=== PATIENT | female | born 1960 | race Caucasian/White ===

== ENCOUNTER 2016-04-22 02:48 | Emergency (ER) | payer OTHER ==
[~2016-04-22] VITALS: Ht 167.6 cm; Wt 92.3 kg
[~2016-04-22 02:48] MED LIST: BEN25 PO; CLIN-73 PO; IBUP-1542 PO
[2016-04-22 02:52] VITALS: Ht 167.6 cm; Wt 92.3 kg
[2016-04-22] MEDS ORDERED: IBUPROFEN 600 MG TAB PO ONE (03:30)
[2016-04-22] MEDS ORDERED: HYDROCODONE/APAP (5/325) TAB PO ONE (03:30)
--- NOTE | 2016-04-22 04:15 | RADRPT ---
PROCEDURE: XR right shoulder. CLINICAL INDICATION: pain TECHNIQUE: 3 views of the right shoulder were performed. COMPARISON: None. FINDINGS: No fracture or dislocation is seen. No lytic or blastic bony lesion is seen. No significant degene rative change. No definite soft tissue abnormality. IMPRESSION: No definite acute fracture or dislocation. RPTAT: [facility] Vickie Fernandes Physician Date Time Electronically viewed and signed by Vickie Fernandes, Physician on 04/22/2016 04:15 LE/
--- NOTE | 2016-04-22 04:17 | RADRPT ---
PROCEDURE: XR Elbow. CLINICAL INDICATION: pain TECHNIQUE: AP, lateral and oblique views of the right elbow performed. COMPARISON: None. FINDINGS: No elbow effusion is seen. There is a 3 x 4 mm bony density lateral to the lateral humeral condyle which may be due to acute or older avulsion fracture. No other evidence for fracture or dislocation is seen. IMPRESSION: 3 x 4 mm bony density lateral to the lateral humeral condyle which may be an acute or old 30 avulsio n fracture fragment. Correlate clinically as to the site of the patient's pain. RPTAT: [facility] Physician Speedy Date Time Electronically viewed and signed by Physician Speedy on 04/22/2016 04:17 LE/
--- NOTE | 2016-04-22 04:18 | RADRPT ---
PROCEDURE: XR Forearm. CLINICAL INDICATION: pain TECHNIQUE: AP and lateral views of the right forearm were obtained. COMPARISON: Elbow views from earlier FINDINGS: The 3 x 4 mm bony fragment adjacent to the lateral humeral condyle is again seen and on the study th ere is a suggestion of associated soft tissue swelling. No other evidence for fracture or dislocati on is seen. IMPRESSION: Bony fragment adjacent to the lateral humeral condyle which may be acute rather than chronic. Corre late clinically as to the site of the patient's pain. RPTAT: [facility] Physician Speedy Date Time Electronically viewed and signed by Vickie Fernandes Physician on 04/22/2016 04:18 LE/
--- NOTE | 2016-04-22 04:19 | RADRPT ---
PROCEDURE: XR right Wrist. CLINICAL INDICATION: Pain TECHNIQUE: 3 views of the right wrist were obtained. COMPARISON: No prior studies are available for comparison. FINDINGS: No acute fracture or dislocation is seen. No definite lytic or blastic bony lesion. No marked soft tissue swelling. No definite abnormal calcifications. No significant degenerative change. Old fif th metacarpal fracture is noted. There is slight negative ulnar variance. IMPRESSION: No definite acute abnormality of the right wrist. RPTAT: [facility] Physician Speedy Date Time Electronically viewed and signed by Vickie Fernandes Physician on 04/22/2016 04:19 LE/
[2016-04-22] MEDS ORDERED: HYDR-906 PO (04:20)
[2016-04-22] MEDS ORDERED: NAPR-260 PO (04:20)
[2016-04-22] MEDS ORDERED: CLIN-73 PO (04:20)
--- NOTE | 2016-04-22 04:21 | RADRPT ---
PROCEDURE: Right hand x-ray CLINICAL INDICATION: pain TECHNIQUE: AP, lateral and oblique views were obtained. COMPARISON: None FINDINGS: Old fifth metacarpal fracture is seen. On the lateral view, there also appears to be an old fourth metacarpal fracture. There are mild degenerative changes of the interphalangeal joints space narrow ing and soft tissue swelling. No acute fracture dislocation is seen. Negative ulnar variance is se en. IMPRESSION: No definite acute bony abnormality. RPTAT: [facility] Physician Speedy Date Time Electronically viewed and signed by Vickie Fernandes Physician on 04/22/2016 04:21 LE/
--- NOTE | 2016-04-22 04:39 | ERD ---
ER Documentation Chief Complaint Date/Time DATE: 04/22/16 TIME: 04:31 Chief Complaint RIGHT ARM PAIN X 5 DAYS, DENIES INJURY HPI 55-year-old female who presents to the ER with right arm pain for the last 5 days. Patient states the pain radiates to the shoulder is located mostly Her elbow. Patient did fall 2 months ago and elbow. Patient states that she did not experience any pain afterwards 5 days ago she began having excruciating pain. Patient does admit to numbness of her pinky. Patient is also complaining of some bug bites of her right arm. Bug bites are very itchy, red and warm to the touch. She has had these for 3 days. ROS 12 point review of systems was done, all negative except per HPI. Medications Home Meds Active Scripts Clindamycin Hcl* (Clindamycin Hcl*) 300 Mg Capsule, 300 MG PO TID for 7 Days, CAP Prov:ELIDA SWAN 04/22/16 Hydrocodone/Acetaminophen ([place] 5-325 Tablet) 1 Each Tablet, 1 TAB PO Q6H Y for PAIN, #10 TAB Prov:ELIDA SWAN 04/22/16 Naproxen* (Naprosyn*) 500 Mg Tablet, 500 MG PO BID Y for PAIN AND/OR INFLAMMATION, #30 TAB Prov:ELIDA SWAN 04/22/16 Clindamycin Hcl* (Clindamycin Hcl*) 300 Mg Capsule, 300 MG PO TID for 10 Days, # 30 CAP 0 Refills Prov:NANDA PICKETT PA-C 10/09/15 Ibuprofen* (Motrin*) 600 Mg Tab, 600 MG PO Q8 for 10 Days, #30 TAB 0 Refills Prov:NANDA PICKETT PA-C 10/09/15 Diphenhydramine Hcl* (Benadryl*) 25 Mg Cap, 25 MG PO Q6 for 7 Days, #30 CAP 0 Refills Prov:NANDA PICKETT PA-C 10/09/15 Allergies Allergies: Coded Allergies: Amoxicillin (Verified Allergy, 01/15/13) throat swells shut, rashes PMhx/Soc Medical and Surgical Hx: pt denies Medical Hx, pt denies Surgical Hx History of Surgery: No Anesthesia Reaction: No Hx Neurological Disorder: No Hx Respiratory Disorders: No Hx Cardiac Disorders: No Hx Psychiatric Problems: No Hx Miscellaneous Medical Probl: No Hx Alcohol Use: Yes Hx Substance Use: Yes Hx Tobacco Use: Yes Smoking Status: Current every day smoker Physical Exam Vitals Vital Signs Date Time Temp Pulse Resp B/P Pulse Ox O2 Delivery O2 Flow Rate FiO2 04/22/16 02:52 97.6 88 20 133/70 100 Physical Exam Const: [] Head: Atraumatic Eyes: Normal Conjunctiva Resp: Clear to auscultation bilaterally Cardio: Regular rate and rhythm, no murmurs Skin: No petechiae or rashes. multiple bug bites the right arm. surrounding erythema, warm to the touch, TTP Ext: Right shoulder: full and non painful ROM. not ttp. right humerus: not ttp, there are some bug bites distally. Right elbow: extremely ttp, limited and painful ROM Right forearm: ttp along forearm. Right wrist: full rom of wrist, non painful, no snuffbox tenderness. Right hand: full ROM of hand, patient does have decreased feeling to 5th digit (C8) Neur: Awake and alert Psych: Normal Mood and Affect Results 24 hrs Current Medications Medications (Trade) Dose Ordered Sig/Micah Route PRN Reason Start Time Stop Time Status Last Admin Dose Admin Acetaminophen/ Hydrocodone Bitart ([place] (5/325)) 1 tab ONCE ONCE PO 04/22/16 03:30 04/22/16 03:32 DC 04/22/16 03:38 Ibuprofen (Motrin) 600 mg ONCE ONCE PO 04/22/16 03:30 04/22/16 03:32 DC 04/22/16 03:38 Procedures/MDM This is a 55-year-old female that presents to the ER with right arm pain. Patient did have a fracture to her right elbow. Patient states that she fell over 2-1/2 months ago I do not think this is an acute fracture however patient will be put in a splint. Patient was neurovascularly intact before and after splint application. Patient did have some numbness over the fifth digit, this may be due to injury of the elbow. Patient did have bites that appear to be infected. Patient will be sent home with pain medication she urgently needs to follow-up with her primary care providers and see an orthopedic doctor as soon as possible. I shared my medical decision making with the patient she understands and agrees with plan. Departure Diagnosis: Primary Impression: Bug bites Additional Impression: Arm pain Condition: Stable Patient Instructions: Cellulitis Additional Instructions: Call your primary care doctor TOMORROW for an appointment during the next 1-2 days.See the doctor sooner or return here if your condition worsens before your appointment time. ELIDA SWAN Apr 22, 2016 04:38
[2016-04-22 05:03] VITALS: BP 141/89; PULSE 76; RESP 16; TEMP 98.6
== END 2016-04-22 05:06 | disposition home or self-care (01) ==
LOC: FTE 02:48
DX: S42.401A Unspecified fracture of lower end of right humerus, initial encounter for closed fracture (principal); S50.361A Insect bite (nonvenomous) of right elbow, initial encounter; F17.210 Nicotine dependence, cigarettes, uncomplicated; W57.XXXA Bitten or stung by nonvenomous insect and other nonvenomous arthropods, initial encounter; Y92.9 Unspecified place or not applicable
CPT/HCPCS: 29105; 73030; 73080; 73090; 73110; 73130; Z7502; Z7610

== ENCOUNTER 2016-07-09 13:20 | Emergency (ER) | payer OTHER ==
[~2016-07-09] VITALS: Ht 172.7 cm; Wt 95.0 kg
[~2016-07-09 13:20] MED LIST changes: +HYDR-906 PO; +NAPR-260 PO
[2016-07-09] MEDS ORDERED: ONDANSETRON (ODT) 4 MG TAB ODT STA (13:22)
[2016-07-09] MEDS ORDERED: HYDROmorphONE 1 MG/ML SYG IM STA (13:22)
[2016-07-09 13:35] VITALS: Ht 172.7 cm; Wt 95.0 kg
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
[2016-07-09] MEDS ORDERED: IBUP800T25 PO (14:18)
[2016-07-09] MEDS ORDERED: HYDR-902 PO (14:18)
[2016-07-09] MEDS ORDERED: ONDA4TAB14 PO (14:18)
[2016-07-09 14:40] VITALS: BP 135/80; PULSE 62; RESP 19; TEMP 97.8
--- NOTE | 2016-07-09 14:40 | RADRPT ---
PROCEDURE: XR Knee. CLINICAL INDICATION: Status post fall. Rule out patellar fracture. TECHNIQUE: AP, lateral, and oblique views of the right knee are available for review. COMPARISON: None available FINDINGS: There is a nondisplaced oblique transverse fracture through the mid to lower patella. Associated la rge suprapatellar joint effusion is present. The distal femur and proximal tibia are intact. No ra diopaque foreign body is identified. Alignment is anatomic. . IMPRESSION: 1. Oblique transverse fracture of the patella.. 2. Large suprapatellar joint effusion. RPTAT: EE .Daryl Salmeron MD, Date Time Electronically viewed and signed by .Daryl Salmeron MD, on 07/09/2016 14:39 .L/
== END 2016-07-09 14:41 | disposition home or self-care (01) ==
LOC: E/R 13:20
DX: S82.034A Nondisplaced transverse fracture of right patella, initial encounter for closed fracture (principal); Y04.0XXA Assault by unarmed brawl or fight, initial encounter; Z87.891 Personal history of nicotine dependence
CPT/HCPCS: 29505; 73562; 96372; J1170; Z7502; Z7610

== ENCOUNTER 2016-08-24 12:41 | Emergency (ER) | payer OTHER ==
[~2016-08-24] VITALS: Ht 182.9 cm; Wt 90.0 kg
[~2016-08-24 12:41] MED LIST changes: +HYDR-902 PO; +IBUP800T25 PO; +ONDA4TAB14 PO
[2016-08-24 12:56] VITALS: Ht 182.9 cm; Wt 90.0 kg
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
--- NOTE | 2016-08-24 15:35 | RADRPT ---
PROCEDURE: XR left Ankle. CLINICAL INDICATION: Left ankle pain. TECHNIQUE: Three views of the left ankle were performed. COMPARISON: None. FINDINGS: A marker was placed adjacent to the lateral aspect of the left ankle for localization purposes. The re is mild lateral soft tissue swelling. In the setting of trauma, the findings likely represent li gamentous injury. There is no evidence for fracture. No evidence for bone destructive or erosive c hange. There is calcaneal enthesopathy. IMPRESSION: 1. No evidence for fracture. 2. Lateral soft tissue swelling which can be seen with ligamentous injury. RPTAT: XX .Scot Evans MD, MD Date Time Electronically viewed and signed by .Scot Evans MD, on 08/24/2016 15:35 .T/
--- NOTE | 2016-08-24 16:37 | RADRPT ---
PROCEDURE: XR Knee. CLINICAL INDICATION: Pain. TECHNIQUE: Right knee x-rays, three views. COMPARISON: None. FINDINGS: Bone density appears decreased. There is no visible fracture. Minimal mild joint space narrowing is observed. Marginal osteophytes are most prominent along the lateral aspect of the joint. A small j oint effusion is observed. IMPRESSION: No visible fracture. Mild degenerative changes of the knee with small joint effusion. RPTAT: [facility] .Mindy Jennings MD, Date Time Electronically viewed and signed by .Mindy Jennings MD, on 08/24/2016 16:37 .T/
== END 2016-08-24 16:59 | disposition left against medical advice (07) ==
LOC: FTE 12:41
DX: S82.001A Unspecified fracture of right patella, initial encounter for closed fracture (principal); S99.912A Unspecified injury of left ankle, initial encounter; F17.210 Nicotine dependence, cigarettes, uncomplicated; X58.XXXA Exposure to other specified factors, initial encounter; Y92.9 Unspecified place or not applicable
CPT/HCPCS: 73562; 73610; Z7502